=== PATIENT | male | born 1960 | race Caucasian/White ===

== ENCOUNTER 2021-12-04 19:53 | Inpatient (IN) ==
[2021-12-04] MEDS ORDERED: Amiodarone 360 MG IVPREMIX 360 MG/200 ML BAG IV SCH (20:15)
[2021-12-04 20:31] LABS: ABS Eosinophils 0.2 10^3/ul (0-0.6); ABS Lymphocytes 1.5 10^3/ul (1.0-4.8); ABS Monocytes 0.6 10^3/ul (0-0.8); Eosinophil % 2.6 %; Hematocrit 41 % (42-52); Hemoglobin 14.2 g/dL (14.0-18.0); Lymphocyte % 23.6 %; Mean Corpuscular HGB Conc 35 g/dL (31-36); Mean Corpuscular Hemoglobin 34 pg (27-31); Mean Corpuscular Volume 99 fL (80-94); Mean Platelet Volume 7.9 fL (7.4-10.4); Platelet Count 264 10^3/uL (150-450); Red Blood Count 4.14 10^6 /uL (4.18-5.48); Red Cell Distribution Width 14 % (10-15); White Blood Count 6.3 10^3/uL (3.5-10.8)
[2021-12-04 20:42] LABS: ALT 70 U/L (7-52); AST 51 U/L (13-39); Albumin 3.7 g/dL (3.2-5.2); Albumin/Globulin Ratio 1.5 (1-3); Alkaline Phosphatase 99 U/L (35-149); Anion Gap 5 mmol/L (2-11); Blood Urea Nitrogen 9 mg/dL (6-24); CO2 Carbon Dioxide 23 mmol/L (22-32); Calcium 8.7 mg/dL (8.6-10.3); Chloride 107 mmol/L (101-111); Globulin 2.4 g/dL (2-4); Glucose 89 mg/dL (70-100); Magnesium 1.8 mg/dL (1.9-2.7); Phosphorus 3.5 mg/dL (2.5-5.0); Potassium 4.2 mmol/L (3.5-5.0); Sodium 135 mmol/L (135-145); Total Protein 6.1 g/dL (6.4-8.9); eGFR CKD-EPI 99.8 (>60)
[2021-12-04] MEDS ORDERED: Esmolol 10 MG/ML IVPREMIX 2,500 MG/250 ML BAG IV ONE (20:44)
[2021-12-04 20:45] LABS: Troponin I 0.41 ng/mL (<0.03)
[2021-12-04] MEDS: Esmolol 10 MG/ML IVPREMIX 2,500 MG/250 ML BAG IV SCH (20:47)
[2021-12-04 21:26] LABS: TSH Ultra Thyroid Stim Horm 2.19 mcIU/mL (0.34-5.60)
[2021-12-04] MEDS ORDERED: Magnesium Sulfate 2 gm BAG 2 GM/50 ML BAG IVPB ONE (21:33)
[2021-12-05 00:06] LABS: Troponin I 0.34 ng/mL (<0.03)
[2021-12-05] MEDS: Esmolol 10 MG/ML IVPREMIX 2,500 MG/250 ML BAG IV SCH ×2 (00:56→03:32)
[2021-12-05] MEDS ORDERED: Enoxaparin 100 MG/ML SYR SUBCUT SCH (02:00)
[2021-12-05 04:31] LABS: ABS Eosinophils 0.2 10^3/ul (0-0.6); ABS Lymphocytes 1.1 10^3/ul (1.0-4.8); ABS Monocytes 0.4 10^3/ul (0-0.8); ABS Neutrophils 3.1 10^3/ul (1.5-7.7); Eosinophil % 3.3 %; Hematocrit 40 % (42-52); Hemoglobin 13.8 g/dL (14.0-18.0); Lymphocyte % 22.6 %; Mean Corpuscular HGB Conc 34 g/dL (31-36); Mean Corpuscular Hemoglobin 33 pg (27-31); Mean Corpuscular Volume 97 fL (80-94); Mean Platelet Volume 7.5 fL (7.4-10.4); Nucleated Red Blood Cells % 0.1; Platelet Count 239 10^3/uL (150-450); Red Blood Count 4.13 10^6 /uL (4.18-5.48); Red Cell Distribution Width 14 % (10-15); White Blood Count 4.8 10^3/uL (3.5-10.8)
[2021-12-05 04:47] LABS: Calcium 8.7 mg/dL (8.6-10.3); Potassium 4.4 mmol/L (3.5-5.0); eGFR CKD-EPI 97.8 (>60)
[2021-12-05 09:00] LABS: Phosphorus 2.9 mg/dL (2.5-5.0)
[2021-12-05] MEDS ORDERED: Multivitamins/Minerals TAB PO SCH (09:00)
[2021-12-05 09:51] VITALS: BP 137/80
== END 2021-12-05 10:45 | disposition home or self-care (01) | DRG 310 ==
LOC: ICU 19:53
PROVIDERS: ADMIT Internal Medicine; ATTEND Internal Medicine